=== PATIENT | male | born 1955 | race Caucasian/White ===

== ENCOUNTER 2017-03-06 06:45 | Day surgery (SDC) | payer BC ==
[~2017-03-06] VITALS: Ht 185.4 cm; Wt 103.1 kg
[~2017-03-06 06:45] MED LIST: ASPI-558 PO; CYAN500T37 PO; FENO45CA2 PO; FISH1CAP29 PO; GATI2.5D LEFT EYE; LISI-14 PO; MELO-267 PO; MULT-806 PO; OMEP20TA2 PO; PRED10DR15 LEFT EYE; SIMV40TA5 PO; VITA-286 PO; [UNRECOGNIZED DRUG - CODE] PO
--- OUTSIDE RECORDS SUMMARY | 2017-03-06 06:49 | XMS REPORT | Continuity of Care Document ---
Author Author [facility] Organization [facility] Address Unknown Phone Unavailable Allergies Active Description Code Type Severity Reaction Onset Reported/Identified Relationship to Patient Clinical Status Yes meperidine meperidine Drug Allergy Unknown UNKNOWN 01/30/2017 Medications Problems Procedures Results Test Result Range HEMOGLOBIN - 01/30/17 13:13 MEAN CELL VOLUME 88.3 fl 80.0-100.0 HEMOGLOBIN 14.4 gm/dL 14.0-18.0 METABOLIC PANEL, BASIC - 01/30/17 13:13 POTASSIUM 3.7 mmol/L 3.5-5.3 EST GFR (MDRD) > 60 mL/min > 59 ANION GAP 9 mmol/L 5-15 GLUCOSE 91 mg/dL 70-99 CALCIUM 9.0 mg/dL 8.5-10.1 BLOOD UREA NITROGEN 18 mg/dL 7-20 CREATININE 1.0 mg/dL 0.7-1.3 SODIUM 137 mmol/L 135-148 CHLORIDE 104 mmol/L 98-110 CARBON DIOXIDE 24 mmol/L 21-32 Encounters ACCT No. Visit Date/Time Discharge Status Pt. Type Provider Facility Loc./Unit Complaint [id number] 01/30/2017 11:42:00 2016 16:37:00 DIS Outpatient Swapna APARICIO, Sajan Simental [facility]
[2017-03-06 06:59] VITALS: Ht 185.4 cm; Wt 103.1 kg
[2017-03-06 07:00] VITALS: BP 146/90; PULSE 68; RESP 15; TEMP 97.9; O2SAT 93
[2017-03-06] MEDS ORDERED: LIDOCAINE 1% (10mg/ml) 2ml SDV INJ ONE (07:00)
[2017-03-06] MEDS ORDERED: LR 1,000 ML IV SCH (07:00)
--- NOTE | 2017-03-06 07:12 | ANESPREOP ---
Anesthesia Record Date and Time DATE: 03/06/17 TIME: 07:10 Pre-Op Diagnosis history of polyps Proposed Surgical Procedure COLONOSCOPY NPO since: 2100 Allergies: Coded Allergies: meperidine (Verified Allergy, Unknown, VOMITING, 03/05/17) Ht/Wt/BMI Height: 6 ' 1.00 " Weight: 103.100 kg BMI: 30.0 kg/m2 Vital Signs Date Time Temp Pulse Resp B/P Pulse Ox O2 Delivery O2 Flow Rate FiO2 03/06/17 07:00 97.9 68 15 146/90 93 Room Air Medications Inpatient Medications Current Medications Medications (Trade) Dose Ordered Sig/Guillermo Start Time Stop Time Status Last Admin Dose Admin Lactated Ringer's (Lactated Ringers) 1,000 ml @ 50 mls/hr Q20H 03/06/17 07:00 Aspirin (Aspir 81) 81 Mg Tablet.dr, 81 MG PO DAILY, (Reported) Cyanocobalamin (Vitamin B-12) 500 Mcg Tablet, 500 MCG PO DAILY, (Reported) Fenofibric Acid (Choline) (Fenofibric Acid) 45 Mg Capsule.dr, 1 CAP PO DAILY, ( Reported) DO NOT BREAK, CRUSH, DISSOLVE, OR CHEW CAPSULE. IF PATIENT CAN NOT SWALLOW A DIFFERENT MEDICATION MAY BE REQUIRED. DO NOT EXCEED 135 MG DAILY (THREE 45 MG CAPSULES). Fish Oil/[place]-3 Fatty Acids (Fish Oil 1,000 Mg Capsule) 1 Cap Capsule, 1 CAP PO DAILY, (Reported) Last Taken: on 02/26/17 Gatifloxacin (Zymaxid) 25 Drop/2.5 Ml Drops, 11 DROP LEFT EYE QID, (Reported) Lisinopril/Hydrochlorothiazide (Lisinopril-Hctz 10-12.5 Tab) 1 Tab Tablet, 1 TAB PO DAILY, (Reported) Meloxicam (Meloxicam) 15 Mg Tablet, 15 MG PO DAILY, (Reported) Multivitamins (Multivitamin) 1 Tab Tablet, 1 TAB PO DAILY, (Reported) Omeprazole Magnesium (Prilosec Otc) 20 Mg Tablet.dr, 1 TAB PO HS, (Reported) Prednisolone Acetate (Omnipred) 10 Ml Drops.susp, 1 DROP LEFT EYE QID, (Reported ) Simvastatin (Simvastatin) 40 Mg Tablet, 40 MG PO HS, (Reported) Take 1 tablet, by mouth, 1 time a day (at BEDTIME). Rob's Wort ([place] Wort) 150 Mg Capsule, 1 CAP PO DAILY, (Reported) Vitamin E (Vitamin E) 400 Unit Capsule, 400 UNIT PO DAILY, (Reported) Last Taken: on 02/26/17 Currently on Beta Huong: No Medical/Surgical History Anesthesia PMH: Reports: *Hypertension, Arthritis (IN BACK, NECK), Back Problems, Obesity, Reflux, Sleep Apnea (POSSIBLE, DOES SNORE) Smoking Status: Former smoker (quit at age 24) Use Chewing Tobacco?: No Second Hand Exposure: No Substance Use Type: does not use Alcohol Intake: none Past Surgical History Orthopedic Surgeries: Yes - RT ROTATOR CUFF; RT KNEE SCOPE Abdominal Surgeries: Yes - [facility] HERNIA Genitourinary Surgeries: No Cardiac Surgeries: No Endocrine Surgeries: No Reproductive Surgeries: No Neurological Surgeries: No Ear Surgeries: No Nose Surgeries: No Throat Surgeries: Yes - T&A; EGD Other Surgeries: Yes - COLONOSCOPY Anesthesia Adverse Reactions: FOUND none Family Hx of Anesthesia Advers: none Hx of Motion Sickness: No Physical Exam Respiratory: Bilat breath sounds equal, Lungs clear Cardiovascular: FOUND Regular rate, rhythm Airway Assessment Mallampati Score: II TMD: 3 Fingerbreadths Neck Extension: Fair Teeth: Lower Dentures Overall Assessment: May Be Diff Mask Vent. (facial hair) ASA: 3 Plan Anesthesia Plan: TIVA, LMA, GETA Discussion Discussed risks/options/alternatives of anesthesia and questions answered. Patient consents. Nursing pain assessment noted. Present: Family Member Attestation Statement Prior to the delivery of any anesthetic medication, I examined the patient, developed the plan, obtained the patient's consent and discussed the risk and benefits of the procedure with the patient/guardian. DELGADO TORRE CRNA Mar 06, 2017 07:12
[2017-03-06] MEDS ORDERED: PROPOFOL 500mg 50 ML IV ONE (09:21)
[2017-03-06 09:47] VITALS: BP 93/52; PULSE 81; RESP 20; TEMP 97.1; O2SAT 95
--- NOTE | 2017-03-06 09:48 | GSPOSTPROC ---
Immediate Operative Note DATE: 03/06/17 TIME: 09:47 Postop Diagnosis: Hematochezia Surgical Procedure: C-scope Surgeon: Rigo ASA: 3 OSMIN CERON MD Mar 06, 2017 09:48
[2017-03-06 10:00] VITALS: BP 130/74; PULSE 70; RESP 18; O2SAT 94
--- NOTE | 2017-03-06 10:00 | ANESPO ---
Post-Op Note Date 03/06/17 Time: 09:57 Status Pt Participated in Evaluation: Pt participated in person Vital Signs Date Time Temp Pulse Resp B/P Pulse Ox O2 Delivery O2 Flow Rate FiO2 03/06/17 09:47 97.1 81 20 93/52 95 Room Air Respiratory Function: Airway patent, Regular respirations Cardiovascular Function: Regular pulse Mental Status: Alert/oriented Pain Level Intensity: 0 Hydration: Taking po fluids Complications during Recovery None apparent Follow-Up Instructions Instructions Per Surgeon DELGADO TORRE CRNA Mar 06, 2017 10:00
[2017-03-06 10:15] VITALS: BP 145/84; PULSE 62; RESP 18; O2SAT 95
[2017-03-06 10:30] VITALS: BP 132/82; PULSE 68; RESP 16; O2SAT 95
[2017-03-06 10:45] VITALS: BP 138/84; PULSE 72; RESP 16; O2SAT 94
--- NOTE | 2017-03-06 19:26 | OPNOTEF ---
DATE OF OPERATION 03/06/2017 PREOPERATIVE DIAGNOSES 1. Hematochezia. 2. Status post hemorrhoidectomy. POSTOPERATIVE DIAGNOSES 1. Hematochezia. 2. Status post hemorrhoidectomy. 3. Mild sigmoid colon diverticulosis. 4. Internal and external hemorrhoids. OPERATION Total colonoscopy. SURGEON Lucio Sierra MD ANESTHESIA TIVA. ASA CLASS 3. FINDINGS There were no colon or rectal tumors. There were no colon or rectal polyps. There were no colonic angiodysplasia lesions. There was no melanosis coli. There was no inflammatory bowel disease. The patient does have some mild sigmoid colon diverticulosis. No bright red blood or old blood was seen anywhere at the colon or rectum at the time of the procedure today. The patient has had a previous hemorrhoidectomy operation. The patient does have a few residual internal and external hemorrhoids. DESCRIPTION OF OPERATION The patient was brought to the endoscopy room. The patient was placed on a cart in the endoscopy room. The patient was placed in the left lateral recumbent position on the cart in the endoscopy room. The patient was premedicated with intravenous sedation medication administered by the nurse dental biller. The Olympus colonoscope was used. The colonoscope was introduced into the rectum. The colonoscope was advanced up through the rectum and colon all the way up to the cecum. The appendiceal orifice was visualized. The ileocecal valve was visualized. Light was seen transilluminating from the tip of the colonoscope through the wall of the abdomen at the right inguinal area. The colonoscope was then withdrawn out through the colon and rectum and removed from the patient. Digital rectal examination was performed. Findings throughout the procedure were as described above. The patient did continue to receive intravenous sedation medication administered by the nurse dental biller throughout the operation. The patient did tolerate the operation well. RECOMMENDATION Followup colonoscopy again in 10 years. MTDD
== END 2017-03-06 11:00 | disposition home or self-care (01) ==
LOC: SCU 06:45
PROVIDERS: ATTEND Surgery
DX: K92.1 Melena (principal); K57.30 Diverticulosis of large intestine without perforation or abscess without bleeding; K64.8 Other hemorrhoids; K64.4 Residual hemorrhoidal skin tags; Z98.890 Other specified postprocedural states; I10 Essential (primary) hypertension; E78.5 Hyperlipidemia, unspecified; K21.9 Gastro-esophageal reflux disease without esophagitis; Z79.82 Long term (current) use of aspirin; Z79.1 Long term (current) use of non-steroidal anti-inflammatories (NSAID); Z79.52 Long term (current) use of systemic steroids; Z79.899 Other long term (current) drug therapy
CPT/HCPCS: 45378; J2704; J7120